=== PATIENT | female | born 1965 | race Caucasian/White ===

== ENCOUNTER → 2022-08-31 17:55 | Outpatient (CLI) | payer OTHER, SELFPAY ==
--- NOTE | ~2022-08-31 | XR_ITS ---
EXAM: XR lumbar spine 2-3V DATE: 08/31/2022 18:29 HISTORY: M54.41 - Lumbago with sciatica, right side . COMPARISON: 02/08/2019. FINDINGS: Minimal lumbar scoliosis. 5 nonrib-bearing lumbar-type vertebral bodies. Pedicles intact. 2 mm anterolisthesis at L4-5, stable. Vertebral body heights preserved. Multilevel mild disc space yimi rowing and marginal osteophytosis. Multilevel facet hypertrophy and sclerosis aerated question of par tial L5 sacralization on the left. No fracture or dislocation. IMPRESSION: Multilevel mild degenerative disc disease. Multilevel moderate facet arthropathy. Reviewed, dictated and finalized at location K. QUE FURNITURE REPAIRER IMPRESSION: Multilevel mild degenerative disc disease. Multilevel moderate face t arthropathy.
--- NOTE | ~2022-08-31 | XR_ITS ---
EXAM: XR knee LT 2V DATE: 08/31/2022 18:29 HISTORY: M25.562 - Pain in left knee . COMPARISON: None available. FINDINGS: Normal mineralization. No fracture or dislocation. No lytic or blastic lesion. Mild latera l and moderate medial joint space narrowing. Mild tricompartmental osteophytosis. Loss of the normal valgus alignment. No erosion or periosteal change. Soft tissues within normal limits. IMPRESSION: Tricompartmental left knee osteoarthritis, moderate in the medial compartment. Reviewed, dictated and finalized at location K. ATIENT CASE MANAGER IMPRESSION: Tricompartmental left knee osteoarthritis, moderate in the medial c ompartment.
== END ==
PROVIDERS: PCP Family Medicine; Visit Provider Nurse Practitioner Family
DX: M54.41 Lumbago with sciatica, right side (principal); M51.36 Other intervertebral disc degeneration, lumbar region; M17.12 Unilateral primary osteoarthritis, left knee
CPT/HCPCS: 72100; 73560

== ENCOUNTER → 2025-07-11 11:38 | Outpatient (CLI) | payer OTHER, SELFPAY ==
--- NOTE | ~2025-07-11 | XR_ITS ---
EXAMINATION: XR hand RT min 3V, 07/11/2025 11:43 CDT HISTORY: M79.641 - Pain in right hand COMPARISON: No comparisons available. Findings: No acute fracture or malalignment. Severe degenerative changes of the distal interphalangeal joints especially the second and third digits Soft tissues unremarkable. Impression: No acute fracture or malalignment. Reviewed, dictated and finalized at location P. Impression: No acute fracture or malalignment.
--- NOTE | ~2025-07-11 | XR_ITS ---
EXAMINATION: XR hand LT min 3V, 07/11/2025 11:39 CDT HISTORY: M79.642 - Pain in left hand COMPARISON: No comparisons available. Findings: No acute fracture or malalignment. Severe degenerative changes of the distal interphalangeal joints especially the second digit. Soft tissues unremarkable. Impression: No acute fracture or malalignment. Reviewed, dictated and finalized at location P. Impression: No acute fracture or malalignment.
== END ==
LOC: EXPTRAD 11:39
PROVIDERS: PCP Family Medicine; Visit Provider Family Medicine
DX: M79.642 Pain in left hand (principal); M79.641 Pain in right hand
CPT/HCPCS: 73130

== ENCOUNTER 2025-08-05 01:33 | Day surgery (SDC) | payer OTHER, SELFPAY ==
[2025-07-23 11:52] VITALS: BMI 27.2
[2025-08-05 11:10] VITALS: BP 131/86; PULSE 94; RESP 18; TEMP 36.7; O2SAT 100
[2025-08-05] MEDS: LACTATED RINGERS 1,000 ML 150 ML IV CONT (11:23)
--- NOTE | 2025-08-05 12:16 | P.PNAN_ITS ---
Anes - Initial Pre Proc Eval Procedure: Operation Date: 08/05/25 14:30 Proposed Procedures p Screening Colonoscopy - Chan Samayoa MD Date/Time: 08/05/25 12:16 Surgeon: Chan Samayoa MD Pre Op Diagnosis: Encounter for screening for malignant neoplasm of Patient Data Age: 60 Gender: F Height: 1.55 m Weight: 65.5 kg Last Vital Signs Temp 36.7 C 08/05/25 11:10 Pulse 94 08/05/25 11:10 Resp 18 08/05/25 11:10 BP 131/86 08/05/25 11:10 Pulse Ox 100 08/05/25 11:10 O2 Del Method Room Air 08/05/25 11:10 Allergies Allergy/AdvReac Type Severity Reaction Status Date / Time No Known Allergies Allergy Mild Verified 07/23/25 11:51 Home Medications ?Medication ?Instructions ?Recorded ?Confirmed ?Type cetirizine 10 mg tablet (Zyrtec) 10 mg PO DAILY PRN al lergy symptoms 12/29/22 08/05/25 History metformin 500 mg tablet,extended 500 mg PO . once promise y 12/29/22 08/05/25 History release 24 hr bupropion HCl 150 mg 24 hr tablet, 150 mg PO QAM 09/1408/05/25 History extended release (Wellbutrin XL) valacyclovir 1 gram tablet 1,000 mg PO .COMPLEX #20 ta bs 03/29/24 08/05/25 Rx meloxicam 15 mg tablet 15 mg PO DAILY PRN pain #90 tabs 11/27/24 08/05/25 Rx cholecalciferol (vitamin D3) 1,250 50,000 unit PO DAVID HLY 12/27/24 08/05/25 History mcg (50,000 unit) capsule cyanocobalamin (vitamin B-12) 1,000 mcg IM MONTHLY 07/1308/05/25 History 1,000 mcg/mL injection solution levothyroxine 50 mcg tablet 50 mcg PO DAILY #90 tabs 1 08/05/25 Rx (Unithroid) tirzepatide (weight loss) 5 mg/0.5 5 mg subcut WEEKLY 07/11/25 08/05/25 History mL subcutaneous pen injector (Zepbound) Laboratory Tests 08/05/25 11:21 POC Capillary Glucose 86 mg/dl (65-105) Patient hx anesthesia problems: none Family hx anesthesia problems: none Results Review: All pre-operative results and documents have been reviewed as part of the pre- operative evaluation. [facility] Past Medical History Medical History Colon cancer screening normal exam and around 50. BMI 27.0-27.9,adult Pain in left hand Pain in right hand Arthritis ESR 2, CRP less than 1, uric acid 4.6 , MILY negative, CCP negative,on 07/11/2025. BMI 28.0-28.9,adult Vitamin D insufficiency level at 97.7 on 09/29/2024. Level normal at 79.1 on 07/11/2025. BMI 30.0-30.9,adult Obesity (BMI 30.0-34.9) Benign paroxysmal positional vertigo due to bilateral vestibular disorder Conjunctivitis Fever blister Acute non-recurrent maxillary sinusitis Osteoarthritis of hands, bilateral X-ray of both hands on 07/11/2025 reveals severe degenerative arthritis at the D IP joints of multiple fingers. GERD (gastroesophageal reflux disease) Warts of foot left 4th toe interdigital Impaired glucose tolerance Fasting glucose 73 with hemoglobin A1c 5.6 and GFR 68 on 09/29/2024. glucose 71 hemoglobin A1c 5.5, GFR 70 on 07/11/2025. Overweight (BMI 25.0-29.9) Tinea pedis of left foot (~12/29/22) Left knee pain Muscle cramping Breast cancer screening by mammogram normal mammogram 07/16/2022 with recheck in 1 year. Mammogram normal 08/01/2023. Normal 10/22/2024. PCOS (polycystic ovarian syndrome) (~2020) Exposure to COVID-19 virus Lab test positive for detection of COVID-19 virus Viral syndrome Herpes zoster Family History Family History Mother Family history of thyroid disease Diabetes mellitus Hypertension Father Diabetes mellitus Grandparent Family history of alcoholism, Onset Age: 60 Acute myocardial infarction Carcinoma of colon Family history of Alzheimer's disease, Onset Age: 80 Family history of malignant neoplasm of urinary bladder Family history of lung disease Social History Social History Smoking status: Former smoker Tobacco type: cigarettes Alcohol intake: never Alcohol use details: 1 beverage 2x per year at most Substance use: never Substance use type: does not use Lack of Transportation: No Lack of Food: Never True Current Housing: I Have Housing Concerned About Future Housing: No Difficulty Paying Gas/Electric Bills: No Difficulty Paying for Meds: No Currently Unemployed: No Education: High School Diploma/GED Difficulty w/ Childcare or Family Care: No Living arrangements: with family Occupation/Education: occupation Gender identity (if verbalized by the patient): Female Sexual Orientation (if Verbalized by the Patient): Straight or Heterosexual Spiritual care concerns: No Agree to blood products: Yes Anes - Eval Final PreProcedure Day of Procedure 08/05/25 12:16 Patient weight: overweight Heart: regular rate and rhythm Lungs: clear to auscultation Airway: Mallampati scale class II Neurological: alert and oriented Last oral intake: >/= 8 hours ASA classification: III Emergent: no Anesthetic plan: proceed Anesthesia type and monitoring: general GIVS and standard monitoring Results Review: All pre-operative results and documents have been reviewed as part of the pre- operative evaluation. Informed Consent: The patient's anesthetic plan and its attendant risks and benefits were discussed with the patient/family/POA. Questions were solicited and answers provided to the satisfaction of the patient/family/POA.
--- NOTE | 2025-08-05 12:35 | PM.HPGS ---
History of Present Illness History of Present Illness Consent: Risks, benefits, and alternatives have been discussed and questions answered. Patient agrees to proceed with procedure. Chief complaint: Encounter for screening for malignant neoplasm of Narrative: Shital Coombs is a 60 year old female here for screening colonoscopy Review of Systems Review of Systems: All systems reviewed & are unremarkable except as noted in HPI and below PMFSH Past Medical History Medical History Colon cancer screening normal exam and around 50. BMI 27.0-27.9,adult Pain in left hand Pain in right hand Arthritis ESR 2, CRP less than 1, uric acid 4.6 , MILY negative, CCP negative,on 07/11/2025. BMI 28.0-28.9,adult Vitamin D insufficiency level at 97.7 on 09/29/2024. Level normal at 79.1 on 07/11/2025. BMI 30.0-30.9,adult Obesity (BMI 30.0-34.9) Benign paroxysmal positional vertigo due to bilateral vestibular disorder Conjunctivitis Fever blister Acute non-recurrent maxillary sinusitis Osteoarthritis of hands, bilateral X-ray of both hands on 07/11/2025 reveals severe degenerative arthritis at the D IP joints of multiple fingers. GERD (gastroesophageal reflux disease) Warts of foot left 4th toe interdigital Impaired glucose tolerance Fasting glucose 73 with hemoglobin A1c 5.6 and GFR 68 on 09/29/2024. glucose 71 hemoglobin A1c 5.5, GFR 70 on 07/11/2025. Overweight (BMI 25.0-29.9) Tinea pedis of left foot (~12/29/22) Left knee pain Muscle cramping Breast cancer screening by mammogram normal mammogram 07/16/2022 with recheck in 1 year. Mammogram normal 08/01/2023. Normal 10/22/2024. PCOS (polycystic ovarian syndrome) (~2020) Exposure to COVID-19 virus Lab test positive for detection of COVID-19 virus Viral syndrome Herpes zoster Family History Family History Mother Family history of thyroid disease Diabetes mellitus Hypertension Father Diabetes mellitus Grandparent Family history of alcoholism, Onset Age: 60 Acute myocardial infarction Carcinoma of colon Family history of Alzheimer's disease, Onset Age: 80 Family history of malignant neoplasm of urinary bladder Family history of lung disease Social History Social History Smoking status: Former smoker Tobacco type: cigarettes Alcohol intake: never Alcohol use details: 1 beverage 2x per year at most Substance use: never Substance use type: does not use Lack of Transportation: No Lack of Food: Never True Current Housing: I Have Housing Concerned About Future Housing: No Difficulty Paying Gas/Electric Bills: No Difficulty Paying for Meds: No Currently Unemployed: No Education: High School Diploma/GED Difficulty w/ Childcare or Family Care: No Living arrangements: with family Occupation/Education: occupation Gender identity (if verbalized by the patient): Female Sexual Orientation (if Verbalized by the Patient): Straight or Heterosexual Spiritual care concerns: No Agree to blood products: Yes Meds Home Medications and Allergies Home Medications ?Medication ?Instructions ?Recorded ?Confirmed ?Type cetirizine 10 mg tablet (Zyrtec) 10 mg PO DAILY PRN allergy symptoms 12/29/22 08/05/25 History metformin 500 mg tablet,extended 500 mg PO . once daily 12/29/22 08/05/25 History release 24 hr bupropion HCl 150 mg 24 hr tablet, 150 mg PO QAM 09/14/23 08/05/25 History extended release (Wellbutrin XL) valacyclovir 1 gram tablet 1,000 mg PO .COMPLEX #20 tabs 03/29/24 08/05/25 Rx meloxicam 15 mg tablet 15 mg PO DAILY PRN pain #90 tabs 11/27/24 08/05/25 Rx cholecalciferol (vitamin D3) 1,250 50,000 unit PO MONTHLY 12/27/24 08/05/25 History mcg (50,000 unit) capsule cyanocobalamin (vitamin B-12) 1,000 mcg IM MONTHLY 12/27/24 08/05/25 History 1,000 mcg/mL injection solution levothyroxine 50 mcg tablet 50 mcg PO DAILY #90 tabs 06/27/25 08/05/25 Rx (Unithroid) tirzepatide (weight loss) 5 mg/0.5 5 mg subcut WEEKLY 07/11/25 08/05/25 History mL subcutaneous pen injector (Zepbound) Allergies Allergy/AdvReac Type Severity Reaction Status Date / Time No Known Allergies Allergy Mild Verified 07/23/25 11:51 Vital Signs Vital Signs - 24 hr 08/05/25 11:10 Temperature 98.0 F Pulse Rate 94 Respiratory Rate 18 Blood Pressure 131/86 Pulse Oximetry 100 Oxygen Delivery Room Air Exam Const: General: comfortable and no acute distress HENMT: Face/Nose/Sinus: Normal nares present Eyes: General: appearance normal, both eyes and all related structures Resp: Auscultation: clear to auscultation bilaterally Cardio: Rate: regular rate Rhythm: regular rhythm GI: Inspection: non-distended GI Palp: Yes Soft to palpation Skin: General skin exam: normal color Extrem: General: normal to inspection Psych: Mental Status: mental status grossly normal Assessment and Plan Assessment and plan (1) Colon cancer screening: Code(s): Z12.11 - Encounter for screening for malignant neoplasm of colon Status: Acute Assessment and Plan: colonoscopy
[2025-08-05 12:48] VITALS: BP 113/67; PULSE 83; RESP 17; O2SAT 98
[2025-08-05 12:58] VITALS: BP 109/70; PULSE 83; RESP 20; O2SAT 98
[2025-08-05 13:08] VITALS: BP 120/73; PULSE 81; RESP 20; O2SAT 98
== END 2025-08-05 13:22 | disposition home or self-care (01) ==
PROVIDERS: PCP Family Medicine; Referring Provider Family Medicine; Visit Provider Internal Medicine Gastroenterology
PROC: 0DJD8ZZ Inspection of Lower Intestinal Tract, Via Natural or Artificial Opening Endoscopic (ICD-10-PCS; CPT 45378; principal; 2025-08-05 14:30)
DX: Z12.11 Encounter for screening for malignant neoplasm of colon (principal); K64.8 Other hemorrhoids; E55.9 Vitamin D deficiency, unspecified; K21.9 Gastro-esophageal reflux disease without esophagitis; E28.2 Polycystic ovarian syndrome; M19.042 Primary osteoarthritis, left hand; M19.041 Primary osteoarthritis, right hand; Z79.84 Long term (current) use of oral hypoglycemic drugs; Z79.85 Long-term (current) use of injectable non-insulin antidiabetic drugs; Z87.891 Personal history of nicotine dependence; Z80.52 Family history of malignant neoplasm of bladder; Z80.0 Family history of malignant neoplasm of digestive organs; Z82.49 Family history of ischemic heart disease and other diseases of the circulatory system
CPT/HCPCS: 45378; 82948; J2704; J7120